=== PATIENT | male | born 1965 | race American Indian/Alaskan Native ===

== ENCOUNTER 2016-06-30 08:35 | Inpatient (IN) | payer SELFPAY ==
[2016-06-30 09:25] LABS: Basophils % (Auto) 0.4 % (0.0-1.8); Eosinophils % (Auto) 0.4 % (0.0-4.3); Hematocrit 44.2 % (35.5-45.6); Hemoglobin 14.1 gm/dl (11.8-15.2); Mean Corpuscular HGB Conc 32 % (32-34); Mean Corpuscular Volume 74 fl (84-94); Platelet Count 167 K/mm3 (140-440); Red Blood Count 5.97 M/mm3 (3.65-5.03); White Blood Count 13.3 K/mm3 (4.5-11.0)
[2016-06-30 09:33] LABS: Mean Corpuscular Hemoglobin 24 pg (28-32)
[2016-06-30 09:34] LABS: INR 1.16 (0.87-1.13)
[2016-06-30 09:40] LABS: Alanine Aminotransferase 22 units/L (7-56); Albumin 4.2 g/dL (3.9-5); Albumin/Globulin Ratio 1.1 %; Alkaline Phosphatase 71 units/L (35-129); Anion Gap 16 mmol/L; BUN/Creatinine Ratio 8.75; Bilirubin,Total 0.7 mg/dL (0.1-1.2); Blood Urea Nitrogen 7 mg/dL (9-20); Calcium 9.8 mg/dL (8.4-10.2); Carbon Dioxide 29 mmol/L (22-30); Chloride 93.3 mmol/L (98-107); Glucose 120 mg/dL (75-100); Lipase 13 units/L (13-60); Potassium 3.7 mmol/L (3.6-5.0); Sodium 135 mmol/L (137-145); Total Protein 8.2 g/dL (6.3-8.2)
[2016-06-30 09:55] LABS: Bilirubin,Direct < 0.2 mg/dL (0-0.2)
--- NOTE | 2016-06-30 10:09 | XRay Report ---
FLAT AND UPRIGHT ABDOMEN: HISTORY: Abdominal pain. FINDINGS: Stool in colon. No bowel distention or wall thickening. No radiopaque calculus or abnormal calcification. No fluid levels. No free intraperitoneal air. IMPRESSION: Essentially negative abdomen.
[2016-06-30] MEDS ORDERED: MORPHINE IV ONE ×2 (11:46→14:03)
--- NOTE | 2016-06-30 11:49 | Emergency Department Report ---
HPI - General Chief Complaint: Abdominal Pain Time Seen by Provider: 06/30/16 09:07 - HPI HPI: 51-year-old Afro-[place]ian male who presents to the emergency department with the complaint of a 4 to five-day history of abdominal discomfort. Patient says that he had some pizza on June 24 and since that time he has been having pain to both the upper and lower abdomen. He denies any fever, nausea, vomiting but does feel like his abdomen is distended and has been having trouble having a satiating bowel movement. He just had one in the emergency department but said it was small and hard and did not provide any relief. He tried laxities on Thursday and Thursday, 2 and 3 days ago, without any relief. He has a history of hypertension for which she says he is compliant with his medications. He has a primary care doctor but cannot remember their name at this time. He denies any recent travel or sick contacts at home. ED Past Medical Hx - Past Medical History Hx Hypertension: Yes (noncompliant) Hx Asthma: Yes (as a child) - Surgical History Additional Surgical History: kidney stone removal - Social History Smoking Status: Current Every Day Smoker Substance Use Type: None, Alcohol - Medications Home Medications: Home Medications Medication Instructions Recorded Confirmed Last Taken Type Folic Acid [Folvite] 1 mg PO QDAY #30 tablet 01/19/14 06/30/16 Unknown Rx Hydrochlorothiazide [Hctz] 12.5 mg PO DAILY #30 capsule 01/19/14 06/30/16 Unknown Rx Metoprolol [Lopressor TAB] 12.5 mg PO BID #60 tablet 01/19/14 06/30/16 Unknown Rx Multivitamin [Multi Vitamin Daily] 1 each PO DAILY #30 tablet 01/19/14 06/30/16 Unknown Rx Pantoprazole [Protonix] 20 mg PO BID #60 tablet. 01/19/14 06/30/16 Unknown Rx Simvastatin 20 mg PO QHS #30 tablet 01/19/14 06/30/16 Unknown Rx Thiamine [Vitamin B-1] 100 mg PO QDAY #30 tablet 01/19/14 06/30/16 Unknown Rx amLODIPine [Norvasc] 10 mg PO DAILY #30 tab 01/19/14 06/30/16 Unknown Rx ED Review of Systems ROS: Stated complaint: ABD PAIN Other details as noted in HPI Comment: All other systems reviewed and negative Constitutional: denies: chills, fever Eyes: denies: eye pain, eye discharge, vision change ENT: denies: ear pain, throat pain Respiratory: denies: cough, shortness of breath, wheezing Cardiovascular: denies: chest pain, palpitations Gastrointestinal: abdominal pain, constipation. denies: nausea, vomiting Genitourinary: denies: urgency, dysuria Musculoskeletal: denies: back pain, joint swelling, arthralgia Skin: denies: rash, lesions Neurological: denies: headache, weakness, paresthesias Physical Exam - Physical Exam Vital Signs: Vital Signs 06/30/16 06/30/16 08:56 11:46 Temperature 98.3 F Pulse Rate 52 L 81 Respiratory 20 16 Rate Blood Pressure 182/122 Blood Pressure 158/107 [Right] O2 Sat by Pulse 100 99 Oximetry Physical Exam: GENERAL: The patient is well-developed well-nourished. HEENT: Normocephalic. Atraumatic. Extraocular motions are intact. Patient has moist mucous membranes. Pupils equal reactive to light bilaterally. NECK: Supple. Trachea is midline. CHEST/LUNGS: Clear to auscultation. There is no respiratory distress noted. HEART/CARDIOVASCULAR: Regular. There is no tachycardia. There is no gallop rub or murmur. ABDOMEN: Abdomen is soft. Patient has tenderness to palpation to the bilateral lower quadrants and the right upper quadrant with some mild guarding but no rebound tenderness. Patient has normal bowel sounds. SKIN: There is no rash. Warm and dry. NEURO: The patient is awake, alert, and oriented. The patient is cooperative. The patient has no focal neurologic deficits. The patient has normal speech. MUSCULOSKELETAL: There is no tenderness or deformity. There is no limitation range of motion. There is no evidence of acute injury. ED Course Vital Signs 06/30/16 06/30/16 08:56 11:46 Temperature 98.3 F Pulse Rate 52 L 81 Respiratory 20 16 Rate Blood Pressure 182/122 Blood Pressure 158/107 [Right] O2 Sat by Pulse 100 99 Oximetry ED Medical Decision Making - Lab Data Result diagrams: 06/30/16 09:12 06/30/16 09:12 - Radiology Data Radiology results: report reviewed, image reviewed interpreted by me: X-ray of the abdomen does not show any acute process. CT of the abdomen and pelvis with IV contrast shows findings at the sigmoid suggestive of diverticulitis though neoplasm cannot be excluded. Dilated appendix without definitive evidence of appendicitis. There is marked narrowing noted of the lumen of the sigmoid with marked wall thickening. There is stranding noted in the adjacent mesentery. No abscess. - Medical Decision Making 51-year-old male presents to the emergency department with a 4 to five-day history of abdominal pain and trouble with bowel movements. His labs are mostly unremarkable but he does have a mild leukocytosis. Due to the patient's level of discomfort and some guarding, a CT of the abdomen and pelvis with IV contrast was done. CT of the abdomen and pelvis shows what appears to be some narrowing of the lumen of the sigmoid colon along with some wall thickening. I spoke with the radiologist who says that the entire area appears masslike but there is no obvious neoplasm but it could be inflammation from diverticulitis versus some underlying neoplasm. Patient was given some IV antibiotics and blood cultures were obtained. He'll be admitted to the hospital for pain control and further evaluation and has been accepted for admission by the hospitalist, Dr. Kessler. - Differential Diagnosis diverticulitis, bowel obstruction, malignancy, colitis Critical Care Time: No Critical care attestation.: If time is entered above; I have spent that time in minutes in the direct care of this critically ill patient, excluding procedure time. ED Disposition Clinical Impression: Intestinal mass, HTN (hypertension), malignant Hypertension Qualifiers: Hypertension type: essential hypertension Qualified Code(s): I10 - Essential ( primary) hypertension Diverticulitis large intestine Qualifiers: Diverticulitis bleeding: without bleeding Diverticulitis complication: without perforation or abscess Qualified Code(s): K57.32 - Diverticulitis of large intestine without perforation or abscess without bleeding Abdominal pain Qualifiers: Abdominal location: unspecified location Qualified Code(s): R10.9 - Unspecified abdominal pain Disposition: OP ADMITTED IP TO THIS HOSP Is pt being admited?: Yes Condition: Stable Instructions: Hypertension (ED) Referrals: PRIMARY CARE, [Primary Care Provider] - 3-5 Days Time of Disposition: 14:11
[2016-06-30 12:08] LABS: Bilirubin,Urine NEG (Negative); Blood,Urine NEG (Negative); Ketones,Urine 20 mg/dL (Negative); Leukocyte Esterase,Urine NEG (Negative); Mucus,Urine 1+ /HPF; Nitrite,Urine NEG (Negative); Sperm,Urine 3+ /HPF (NP)
--- NOTE | 2016-06-30 13:32 | Cat Scan Report ---
CT scan of abdomen and pelvis with IV contrast: History: Abdominal pain. Findings: Normal lung bases. No pleural pericardial effusion. Fatty liver. Normal gallbladder pancreas and spleen. Normal adrenals. 6 mm nonobstructing calculus left kidney. Normal bladder. No free intraperitoneal fluid or air. No evidence of adenopathy. Normal aorta. Dilated appendix measuring 8mm in diameter. There is stool identified within the appendix. No periappendiceal inflammation. There is marked narrowing noted of the lumen of the sigmoid with marked wall thickening. There is stranding noted in the adjacent mesentery. No abscess. A few diverticula are identified. The proximal descending colon, transverse colon and ascending colon does not appear dilated. Normal rectum. Impression: Findings at sigmoid suggestive of diverticulitis though neoplasm cannot be excluded. Dilated appendix without definite evidence of appendicitis. Nonobstructing calculus left kidney. There is a large mass in the left sigmoid with narrowing of the
--- NOTE | 2016-06-30 14:01 | Admit Criteria Form ---
Admission Criteria Documentation: DIVERTICULITIS, ACUTE Clinical Indications for Admission to Inpatient Care (Place 'X' for any and all applicable criteria): Admission is indicated for ANY ONE of the following (1)(2)(3)(4): [ ]I. Peritoneal signs on physical examination (eg, acute abdominal pain, abdominal tenderness and guarding) [ ]II. Hemodynamic instability [ ]III. Persistent gross bleeding per rectum [ ]IV. Need for inpatient surgical intervention [X]V. Significant abnormality on imaging study including ANY ONE of the following: [ ]a) Abscess [ ]b) Obstruction [ ]c) Fistula [ ]d) Ileus [ ]e) Free perforation [ ]. Immunocompromised patient (steroid use, chemotherapy, uremia, AIDS , transplant patient ) with acute symptoms [X]VII Inpatient admission required rather than observation care (also use Diverticulitis, Acute: Observation Care as appropriate) because of ANY ONE of the following: [ ]a) High fever or infection. requiring inpatient admission as indicated by ANY ONE of the following(5): [ ]1) Appropriate outpatient or observation care antimicrobial treatment unavailable, not effective, not feasible [ ]2) Temperature > 103.1 degrees F (39.5 degrees C) (oral) or < 96.8 degrees F (36 degrees C)(rectal) that does not respond to all emergency treatment measures [ ]3) Temperature> 104.9 degrees F (40.5 degrees C)( oral) [ ]4) Documented bacteremia [X]b) Severe pain requiring acute inpatient management [ ]c) Severe electrolyte abnormalities requiring inpatient care [ ]d) Ongoing transfusion for blood loss (> 2 units) [ ]e) IV fluid to replace significant ongoing losses (> 3 L/m2 per day) [ ]f) Parenteral nutrition regimen that must be implemented on inpatient basis [X]g) Other condition, treatment or monitoring requiring inpatient admission Extended stay beyond goal length of stay may be needed for (2) (15) : [ ]a) Unresolved symptoms (19) [ ]b) Complications [ ]c) Diverticular hemorrhage(2) The original [facility] [employer] content created by [facility] [employer] has been revised. The portions of the content which have been revised are identified through the use of italic text or in bold, and [facility] [employer] has neither reviewed nor approved the modified material. All other unmodified content is copyright [facility]. Please see references footnoted in the original [facility] edition 2016 Admission Criteria Met: Yes
[2016-06-30] MEDS ORDERED: ZOSYN/NS 4.5GM/100ML 4.5 GM/100 ML VIAL IV ONE (14:04)
[2016-06-30] MEDS ORDERED: NACL 0.9% 1000 ML 1,000 ML IV SCH (15:00)
[2016-06-30] MEDS ORDERED: ZOFRAN IV PRN (20:50)
--- NOTE | 2016-06-30 21:38 | Event Note ---
Date: 06/30/16 See H/p in reportys Colitis vs Diverticulitis Htn GERD Hld
[2016-06-30] MEDS: DILAUDID IM PRN (22:13)
[2016-06-30] MEDS: D5NS 1,000 ML IV SCH (22:14)
[2016-06-30] MEDS: HEPARIN SUB-Q SCH ×2 (22:14→22:21)
[2016-06-30] MEDS ORDERED: CATAPRES-TTS PATCH TD SCH (23:00)
[2016-06-30] MEDS: ZOSYN/NS 4.5GM/100ML 4.5 GM/100 ML VIAL IV SCH (23:28)
[2016-07-01] MEDS: ZOSYN/NS 4.5GM/100ML 4.5 GM/100 ML VIAL IV SCH ×3 (06:10→22:24)
[2016-07-01] MEDS: HEPARIN SUB-Q SCH ×3 (06:11→22:24)
[2016-07-01] MEDS: DILAUDID IV PRN ×3 (10:08→20:19)
[2016-07-01] MEDS: D5NS 1,000 ML IV SCH (11:27)
--- NOTE | 2016-07-01 17:26 | Gastroenterology Consultation ---
History of Present Illness - Reason for Consult Consult date: 07/01/16 Abdominal pain, abnormal CT scan Requesting physician: JOEL SALOMON - History of Present Illness Asked to see this pleasant 51yo man for evaluation of abdominal pain and abnormal CT scan. He states that he was in his usual state of health until , when he developed abdominal pain. His pain worsened, which prompted him to come to the ED. In the ED, he had a WBC of approximately 13k. CT A/P was performed, which revealed evidence of sigmoid diverticulitis vs mass lesion. Dre states that prior to 06/25, he was feeling well and denies any bowel habit changes, changes in stool caliber, weight loss, change in appetite. No nausea/ vomiting, fevers, chills, night sweats. No CP/SOB. He mentions that over the past week, it has been difficult to have a BM. Past History Past Medical History: hypertension, other (nephrolithiasis) Past Surgical History: Other (kidney stone removal) Social history: , smoking Family history: no significant family history Medications and Allergies Allergies Allergy/AdvReac Type Severity Reaction Status Date / Time SALOME Inhibitors Allergy COUGH Verified 01/19/14 21:30 Home Medications Medication Instructions Recorded Confirmed Last Taken Type Folic Acid [Folvite] 1 mg PO QDAY #30 tablet 01/19/14 06/30/16 Unknown Rx Hydrochlorothiazide [Hctz] 12.5 mg PO DAILY #30 capsule 01/19/14 06/30/16 Unknown Rx Metoprolol [Lopressor TAB] 12.5 mg PO BID #60 tablet 01/19/14 06/30/16 Unknown Rx Multivitamin [Multi Vitamin Daily] 1 each PO DAILY #30 tablet 01/19/14 06/30/16 Unknown Rx Pantoprazole [Protonix] 20 mg PO BID #60 tablet. 01/19/14 06/30/16 Unknown Rx Simvastatin 20 mg PO QHS #30 tablet 01/19/14 06/30/16 Unknown Rx Thiamine [Vitamin B-1] 100 mg PO QDAY #30 tablet 01/19/14 06/30/16 Unknown Rx amLODIPine [Norvasc] 10 mg PO DAILY #30 tab 01/19/14 06/30/16 Unknown Rx Active Meds: Active Medications Clonidine HCl (Catapres-Tts Patch) 0.2 mg TD QWEEK CAROL Last Admin: 06/30/16 23:27 Dose: 0.2 mg Heparin Sodium (Porcine) (Heparin) 5,000 unit SUB-Q Q8HR [facility] Last Admin: 07/01/16 13:42 Dose: Not Given Hydromorphone HCl (Dilaudid) 1 mg IM Q3H PRN PRN Reason: Pain Last Admin: 06/30/16 22:13 Dose: 1 mg Hydromorphone HCl (Dilaudid) 2 mg IV Q3H PRN PRN Reason: Pain , Severe (7-10) Last Admin: 07/01/16 16:37 Dose: 2 mg Sodium Chloride (Nacl 0.9% 1000 Ml) 1,000 mls @ 150 mls/hr IV DIRECT CAROL Last Admin: 06/30/16 17:07 Dose: 150 mls/hr Dextrose/Sodium Chloride (D5ns) 1,000 mls @ 75 mls/hr IV DIRECT CAROL Last Admin: 07/01/16 11:27 Dose: 75 mls/hr Piperacillin Sod/Tazobactam Sod (Zosyn/Ns 4.5gm/100ml) 4.5 gm in 100 mls @ 200 mls/hr IV Q8HR CAROL PRN Reason: Protocol Last Admin: 07/01/16 13:49 Dose: 200 mls/hr Ondansetron HCl (Zofran) 4 mg IV Q3H PRN PRN Reason: Nausea And Vomiting Review of Systems - Review of Systems All systems: negative (abdominal pain, constipation for the past week) Exam - Constitutional Vital Signs: Temp Pulse Resp BP Pulse Ox 97.8 F 52 L 18 173/92 99 07/01/16 15:31 07/01/16 15:31 07/01/16 15:31 07/01/16 15:31 07/01/16 15:31 General appearance: no acute distress, obese - Neck Neck: supple - Respiratory Respiratory: bilateral: CTA - Cardiovascular Rhythm: regular Heart Sounds: Present: S1 & S2 Extremities: No edema - Gastrointestinal General gastrointestinal: Present: soft, tender (in LLQ), non-distended, normal bowel sounds - Integumentary Integumentary: Present: clear - Neurologic Neurological: alert and oriented x3 - Psychiatric Psychiatric: appropriate mood/affect - Labs CBC & Chem 7: 06/30/16 09:12 06/30/16 09:12 - Imaging CT Scan: report reviewed Assessment and Plan 51yo man with 1 week of abdominal pain; CT shows possible diverticulitis vs sigmoid mass. Rec: 1) OK for pt to have ice chips 2) Cont abx for now 3) Will review CT with radiology; if more concerning for mass, will plan for inpatient colonoscopy. If more consistent with diverticulitis, will tx with bowel rest, abx and plan for elective outpatient colonoscopy in 6-8 weeks Thank you for allowing me to participate in the care of your patient.
--- NOTE | 2016-07-01 17:57 | History and Physical Report ---
CHIEF COMPLAINT: Five-day history of severe abdominal pain. HISTORY OF PRESENT ILLNESS: A 51-year-old -[place]oven[place] male with history of hypertension and asthma, noncompliant with medications, comes in for severe periumbilical and epigastric pain for the last 5 days. The patient attributes it to that pizza he ate on 06/24/2016. Since then, the patient has been upper and periumbilical abdominal pain. No nausea and no vomiting. He feels that his abdomen was distended and severe sharp pain. He had one bowel movement in the ER, which was the small in amount. He tried laxatives on Thursday and Thursday 2 or 3 days ago without any relief. He has a history of hypertension for which he is noncompliant with medications. Primary care doctor . No recent bowel, no shortness of breath, no chest pain. Pain is about 8 on a scale of 1-10. Pain is localized epigastric and periumbilical region. PAST MEDICAL HISTORY: Significant for hypertension and asthma. PAST SURGICAL HISTORY: Kidney stones removed. SOCIAL HISTORY: Smokes about a pack a day. Alcohol occasionally. CURRENT MEDICATIONS: Folic acid 1 mg p.o. daily, hydrochlorothiazide 12.5 p.o. daily, metoprolol 12.5 b.i.d., multivitamin tablets 1 tablet daily, Protonix 20 mg p.o. b.i.d., simvastatin 20 mg p.o. at bedtime, thiamine 100 mg p.o. daily, amlodipine 10 mg p.o. daily. REVIEW OF SYSTEMS: CONSTITUTIONAL: No sore throat, no fever, no weight loss, no weight gain. HEENT: No sore throat, no postnasal drip. CARDIOVASCULAR/RESPIRATORY: No shortness of breath, no chest pain, no palpitations. GASTROINTESTINAL: Severe abdominal pain, especially in the wilda-epigastric and periumbilical region. Pain is about 8 on a scale of 1-10. Some guarding present. No rigidity. Bowel sounds are present. GENITOURINARY: No dysuria and no flank pain. MUSCULOSKELETAL: No joint pains. No muscle pains. CENTRAL NERVOUS SYSTEM: No syncope, no seizures. NEUROLOGIC: No focal deficits. SKIN: No rashes. A 14-point review of systems otherwise review of systems other than abdominal pain, which is severe. Review of systems is essentially negative. PHYSICAL EXAMINATION: GENERAL: Middle-aged male, cooperative during examination. VITAL SIGNS: Temperature 98.3, pulse is 52, respirations are 20, and blood pressure is 182/122. HEENT: Unremarkable. Pupils equal and reactive. NECK: Supple, no lymphadenopathy, no thyromegaly. LUNGS: Clear to auscultation and percussion. Good air entry. CARDIOVASCULAR: S1, S2 heard. No gallop, no murmur, no rub. Apical impulse in left fifth intercostal space and midclavicular line. ABDOMEN: Tender in the epigastric and periumbilical region. No guarding. Some guarding present. No rigidity. Bowel sounds are present. EXTREMITIES: Good pedal pulses. No pedal edema. CENTRAL NERVOUS SYSTEM: Alert and oriented x4, nonfocal exam. SKIN: Normal. LABORATORY DATA: Significant for pro-time is 14.7, INR is 1.16. Glucose is 120, calcium is 9.8, total bilirubin 0.7, direct bilirubin less than 0.2, AST is 17, ALT is 22, alkaline phosphatase is 71, total protein is 8.2, albumin is 4.2. Lipase is 13. Urine shows white blood cells 7. IMAGING STUDIES: CT of the abdomen and pelvis shows sigmoid colon thickening suggestive of diverticulitis versus colitis. Dilated appendix without definite evidence of appendicitis. Marked dilating noted in the lumen of the sigmoid with marked wall thickening. Few diverticula identified. Labs were significant for white count of 13,300 H and 14.1 and 44.2, platelet count is 167,000. Sodium is 135, potassium is 3.7, chloride is 93, bicarbonate is 29, BUN and creatinine 7 and 0.8. ASSESSMENT AND PLAN: 1. Acute colitis. The patient was started on IV fluids and IV Flagyl possible malignancy. Malignancy due to hopefully, biopsies were done and during the colonoscopy. GI consult with Dr. Hagan. 2. Hypertension. Continue Lopressor 12.5 twice a day, amlodipine 10 mg once a day. Gastroesophageal reflux disease. Continue Protonix 20 mg twice a day. 3. Hyperlipidemia. Continue simvastatin 100 mg daily. 4. Deep venous thrombosis prophylaxis, Lovenox 40 mg subcutaneous daily. JOB# [id number] VSM/NTS
[2016-07-02] MEDS: D5NS 1,000 ML IV SCH ×2 (02:34→15:46)
[2016-07-02] MEDS: DILAUDID IV PRN ×4 (02:56→21:43)
--- NOTE | 2016-07-02 03:52 | Progress Note ---
Assessment and Plan - Patient Problems (1) Diverticulitis large intestine Current Visit: Yes Status: Acute Qualifiers: Diverticulitis bleeding: without bleeding Diverticulitis complication: without perforation or abscess Qualified Code(s): K57.32 - Diverticulitis of large intestine without perforation or abscess without bleeding Plan to address problem: IV abx, IVF, suppportive care, pain control, bowel rest (2) HTN (hypertension), malignant Current Visit: Yes Status: Acute Plan to address problem: Monitor bp q shift, continue current care. (3) Intestinal mass Current Visit: Yes Status: Acute Plan to address problem: GI consulted, endoscopy as per GI team. (4) DVT prophylaxis Current Visit: Yes Status: Acute History Interval history: Pt resting comfortably in bed, Pt states that his pain is controlled. No reported nursing events. Pt at bedside. Discussed care plan with patient. Pt acknowledges understanding. Hospitalist Physical - Constitutional Vitals: Temp Pulse Resp BP Pulse Ox 98.2 F 52 L 20 142/86 97 07/02/16 00:35 07/02/16 00:35 07/02/16 00:35 07/02/16 00:35 07/01/16 20:00 General appearance: Present: no acute distress, obese - EENT Eyes: Present: PERRL ENT: hearing intact - Neck Neck: Present: supple - Respiratory Respiratory effort: normal Respiratory: bilateral: CTA - Cardiovascular Rhythm: regular Heart Sounds: Present: S1 & S2 - Extremities Extremities: no ischemia Peripheral Pulses: within normal limits - Abdominal General gastrointestinal: non-tender, non-distended, normal bowel sounds, no hepatomegaly, no splenomegaly Localized gastrointestinal: tender: LUQ - Integumentary Integumentary: Present: clear, warm, dry - Psychiatric Psychiatric: appropriate mood/affect, cooperative - Neurologic Neurologic: CNII-XII intact Results - Labs CBC & Chem 7: 06/30/16 09:12 06/30/16 09:12 Labs: Laboratory Last Values WBC 13.3 K/mm3 (4.5-11.0) H 06/30/16 09:12 RBC 5.97 M/mm3 (3.65-5.03) H 06/30/16 09:12 Hgb 14.1 gm/dl (11.8-15.2) 06/30/16 09:12 Hct 44.2 % (35.5-45.6) 06/30/16 09:12 MCV 74 fl (84-94) L 06/30/16 09:12 MCH 24 pg (28-32) L 06/30/16 09:12 MCHC 32 % (32-34) 06/30/16 09:12 RDW 15.0 % (13.2-15.2) 06/30/16 09:12 Plt Count 167 K/mm3 (140-440) 06/30/16 09:12 Lymph % (Auto) 9.4 % (13.4-35.0) L 06/30/16 09:12 [place] % (Auto) 10.8 % (0.0-7.3) H 06/30/16 09:12 Eos % (Auto) 0.4 % (0.0-4.3) 06/30/16 09:12 Baso % (Auto) 0.4 % (0.0-1.8) 06/30/16 09:12 Lymph # 1.2 K/mm3 (1.2-5.4) 06/30/16 09:12 [place] # 1.4 K/mm3 (0.0-0.8) H 06/30/16 09:12 Eos # 0.1 K/mm3 (0.0-0.4) 06/30/16 09:12 Baso # 0.1 K/mm3 (0.0-0.1) 06/30/16 09:12 Seg Neutrophils % 79.0 % (40.0-70.0) H 06/30/16 09:12 Seg Neutrophils # 10.5 K/mm3 (1.8-7.7) H 06/30/16 09:12 PT 14.7 Sec. (12.2-14.9) 06/30/16 09:12 INR 1.16 (0.87-1.13) H 06/30/16 09:12 Sodium 135 mmol/L (137-145) L 06/30/16 09:12 Potassium 3.7 mmol/L (3.6-5.0) 06/30/16 09:12 Chloride 93.3 mmol/L (98-107) L 06/30/16 09:12 Carbon Dioxide 29 mmol/L (22-30) 06/30/16 09:12 Anion Gap 16 mmol/L 06/30/16 09:12 BUN 7 mg/dL (9-20) L 06/30/16 09:12 Creatinine 0.8 mg/dL (0.8-1.5) 06/30/16 09:12 Estimated GFR > 60 ml/min 06/30/16 09:12 BUN/Creatinine Ratio 8.75 % 06/30/16 09:12 Glucose 120 mg/dL (75-100) H 06/30/16 09:12 Calcium 9.8 mg/dL (8.4-10.2) 06/30/16 09:12 Total Bilirubin 0.7 mg/dL (0.1-1.2) 06/30/16 09:12 Direct Bilirubin < 0.2 mg/dL (0-0.2) 06/30/16 09:12 AST 17 units/L (5-40) 06/30/16 09:12 ALT 22 units/L (7-56) 06/30/16 09:12 Alkaline Phosphatase 71 units/L (35-129) 06/30/16 09:12 Total Protein 8.2 g/dL (6.3-8.2) 06/30/16 09:12 Albumin 4.2 g/dL (3.9-5) 06/30/16 09:12 Albumin/Globulin Ratio 1.1 % 06/30/16 09:12 Lipase 13 units/L (13-60) 06/30/16 09:12 Urine Color Yellow (Yellow) 06/30/16 11:54 Urine Turbidity Clear (Clear) 06/30/16 11:54 Urine pH 7.0 (5.0-7.0) 06/30/16 11:54 Ur Specific [place] 1.024 (1.003-1.030) 06/30/16 11:54 Urine Protein 100 mg/dl mg/dL (Negative) 06/30/16 11:54 Urine Glucose (UA) Neg mg/dL (Negative) 06/30/16 11:54 Urine Ketones 20 mg/dL (Negative) 06/30/16 11:54 Urine Blood Neg (Negative) 06/30/16 11:54 Urine Nitrite Neg (Negative) 06/30/16 11:54 Urine Bilirubin Neg (Negative) 06/30/16 11:54 Urine Urobilinogen 4.0 mg/dL (<2.0) 06/30/16 11:54 Ur Leukocyte Esterase Neg (Negative) 06/30/16 11:54 Urine WBC (Auto) 7.0 /HPF (0.0-6.0) H 06/30/16 11:54 Urine RBC (Auto) 20.0 /HPF (0.0-6.0) 06/30/16 11:54 Urine Mucus 1+ /HPF 06/30/16 11:54 Urine Sperm 3+ /HPF (CPA TAX) 06/30/16 11:54
[2016-07-02] MEDS: ZOSYN/NS 4.5GM/100ML 4.5 GM/100 ML VIAL IV SCH ×3 (06:07→21:44)
[2016-07-02] MEDS: HEPARIN SUB-Q SCH ×3 (06:11→22:41)
[2016-07-02] MEDS: DILAUDID IM PRN (08:53)
[2016-07-02] MEDS ORDERED: FLAGYL 500 MG/100 ML 500 MG/100 ML BAG IV ONE (14:00)
--- NOTE | 2016-07-02 16:07 | Gastroenterology Progress Note ---
Assessment and Plan 51yo man with 1 week of abdominal pain; CT shows possible diverticulitis vs sigmoid mass. Rec: 1) Start clear liquids 2) OK to continue Zosyn 3) CT reviewed with radiology; findings c/w sigmoid diverticulitis but segment of involved bowel was so extensive, that underlying mass cannot be excluded 4) Would therefore recommend elective colonoscopy in 6-8 weeks, after diverticulitis heals. I emphasized the importance of compliance with follow-up , which he understands 5) Can give 1 dose of Miralax today Subjective Date of service: 07/02/16 Principal diagnosis: Abdominal pain Interval history: Pt seen/examined. Still w/ some LLQ pain. Tried to have a BM, but could not. No fevers/chills. No nausea/vomiting. Objective - Constitutional Vitals: Temp Pulse Resp BP Pulse Ox 97.9 F 60 16 164/107 96 07/02/16 08:30 07/02/16 08:30 07/02/16 08:30 07/02/16 08:30 07/02/16 08:30 General appearance: no acute distress - Neck Neck: supple - Respiratory Respiratory: bilateral: CTA - Cardiovascular Rhythm: regular Heart Sounds: Present: S1 & S2 - Extremities Extremities: No edema - Gastrointestinal General gastrointestinal: Present: soft, tender (in LLQ), non-distended, normal bowel sounds - Integumentary Integumentary: Present: clear - Neurologic Neurological: alert and oriented x3 - Psychiatric Psychiatric: appropriate mood/affect - Labs CBC & Chem 7: 06/30/16 09:12 06/30/16 09:12 - Imaging CT scan: image reviewed (likely diverticulitis but cannot exclude underlying mass)
--- NOTE | 2016-07-02 17:52 | Progress Note ---
Assessment and Plan - Patient Problems (1) Diverticulitis large intestine Current Visit: Yes Status: Acute Qualifiers: Diverticulitis bleeding: without bleeding Diverticulitis complication: without perforation or abscess Qualified Code(s): K57.32 - Diverticulitis of large intestine without perforation or abscess without bleeding Plan to address problem: IV abx, IVF, suppportive care, pain control, bowel rest (2) HTN (hypertension), malignant Current Visit: Yes Status: Acute Plan to address problem: Monitor bp q shift, continue current care. (3) Intestinal mass Current Visit: Yes Status: Acute Plan to address problem: GI consulted, endoscopy as per GI team. (4) DVT prophylaxis Current Visit: Yes Status: Acute History Interval history: Pt resting comfortably in bed, Pt states that his pain is controlled. No reported nursing events. Discussed care plan with patient. Pt acknowledges understanding. Hospitalist Physical - Constitutional Vitals: Temp Pulse Resp BP Pulse Ox 98.1 F 90 20 158/108 96 07/02/16 16:30 07/02/16 16:30 07/02/16 16:30 07/02/16 16:30 07/02/16 08:30 General appearance: Present: no acute distress, obese - EENT Eyes: Present: PERRL, EOM intact ENT: hearing intact - Neck Neck: Present: supple - Respiratory Respiratory effort: normal Respiratory: bilateral: CTA - Cardiovascular Rhythm: regular Heart Sounds: Present: S1 & S2 - Extremities Extremities: no ischemia Peripheral Pulses: within normal limits - Abdominal General gastrointestinal: soft, non-distended, normal bowel sounds, no hepatomegaly, no splenomegaly Localized gastrointestinal: tender: LLQ - Integumentary Integumentary: Present: clear, warm, dry - Psychiatric Psychiatric: appropriate mood/affect, cooperative - Neurologic Neurologic: CNII-XII intact Results - Labs CBC & Chem 7: 06/30/16 09:12 06/30/16 09:12 Labs: Laboratory Last Values WBC 13.3 K/mm3 (4.5-11.0) H 06/30/16 09:12 RBC 5.97 M/mm3 (3.65-5.03) H 06/30/16 09:12 Hgb 14.1 gm/dl (11.8-15.2) 06/30/16 09:12 Hct 44.2 % (35.5-45.6) 06/30/16 09:12 MCV 74 fl (84-94) L 06/30/16 09:12 MCH 24 pg (28-32) L 06/30/16 09:12 MCHC 32 % (32-34) 06/30/16 09:12 RDW 15.0 % (13.2-15.2) 06/30/16 09:12 Plt Count 167 K/mm3 (140-440) 06/30/16 09:12 Lymph % (Auto) 9.4 % (13.4-35.0) L 06/30/16 09:12 [place] % (Auto) 10.8 % (0.0-7.3) H 06/30/16 09:12 Eos % (Auto) 0.4 % (0.0-4.3) 06/30/16 09:12 Baso % (Auto) 0.4 % (0.0-1.8) 06/30/16 09:12 Lymph # 1.2 K/mm3 (1.2-5.4) 06/30/16 09:12 [place] # 1.4 K/mm3 (0.0-0.8) H 06/30/16 09:12 Eos # 0.1 K/mm3 (0.0-0.4) 06/30/16 09:12 Baso # 0.1 K/mm3 (0.0-0.1) 06/30/16 09:12 Seg Neutrophils % 79.0 % (40.0-70.0) H 06/30/16 09:12 Seg Neutrophils # 10.5 K/mm3 (1.8-7.7) H 06/30/16 09:12 PT 14.7 Sec. (12.2-14.9) 06/30/16 09:12 INR 1.16 (0.87-1.13) H 06/30/16 09:12 Sodium 135 mmol/L (137-145) L 06/30/16 09:12 Potassium 3.7 mmol/L (3.6-5.0) 06/30/16 09:12 Chloride 93.3 mmol/L (98-107) L 06/30/16 09:12 Carbon Dioxide 29 mmol/L (22-30) 06/30/16 09:12 Anion Gap 16 mmol/L 06/30/16 09:12 BUN 7 mg/dL (9-20) L 06/30/16 09:12 Creatinine 0.8 mg/dL (0.8-1.5) 06/30/16 09:12 Estimated GFR > 60 ml/min 06/30/16 09:12 BUN/Creatinine Ratio 8.75 % 06/30/16 09:12 Glucose 120 mg/dL (75-100) H 06/30/16 09:12 Calcium 9.8 mg/dL (8.4-10.2) 06/30/16 09:12 Total Bilirubin 0.7 mg/dL (0.1-1.2) 06/30/16 09:12 Direct Bilirubin < 0.2 mg/dL (0-0.2) 06/30/16 09:12 AST 17 units/L (5-40) 06/30/16 09:12 ALT 22 units/L (7-56) 06/30/16 09:12 Alkaline Phosphatase 71 units/L (35-129) 06/30/16 09:12 Total Protein 8.2 g/dL (6.3-8.2) 06/30/16 09:12 Albumin 4.2 g/dL (3.9-5) 06/30/16 09:12 Albumin/Globulin Ratio 1.1 % 06/30/16 09:12 Lipase 13 units/L (13-60) 06/30/16 09:12 Urine Color Yellow (Yellow) 06/30/16 11:54 Urine Turbidity Clear (Clear) 06/30/16 11:54 Urine pH 7.0 (5.0-7.0) 06/30/16 11:54 Ur Specific [place] 1.024 (1.003-1.030) 06/30/16 11:54 Urine Protein 100 mg/dl mg/dL (Negative) 06/30/16 11:54 Urine Glucose (UA) Neg mg/dL (Negative) 06/30/16 11:54 Urine Ketones 20 mg/dL (Negative) 06/30/16 11:54 Urine Blood Neg (Negative) 06/30/16 11:54 Urine Nitrite Neg (Negative) 06/30/16 11:54 Urine Bilirubin Neg (Negative) 06/30/16 11:54 Urine Urobilinogen 4.0 mg/dL (<2.0) 06/30/16 11:54 Ur Leukocyte Esterase Neg (Negative) 06/30/16 11:54 Urine WBC (Auto) 7.0 /HPF (0.0-6.0) H 06/30/16 11:54 Urine RBC (Auto) 20.0 /HPF (0.0-6.0) 06/30/16 11:54 Urine Mucus 1+ /HPF 06/30/16 11:54 Urine Sperm 3+ /HPF (BOAT CAPTAIN) 06/30/16 11:54
[2016-07-02] MEDS ORDERED: MIRALAX 3350 PO ONE (18:00)
[2016-07-02] MEDS: ZOFRAN IV PRN (21:43)
[2016-07-03] MEDS: DILAUDID IM PRN (03:06)
[2016-07-03] MEDS: ZOFRAN IV PRN (03:06)
[2016-07-03] MEDS: ZOSYN/NS 4.5GM/100ML 4.5 GM/100 ML VIAL IV SCH (05:51)
[2016-07-03] MEDS: HEPARIN SUB-Q SCH (05:53)
[2016-07-03 09:07] VITALS: BP 166/105
--- NOTE | 2016-07-03 09:39 | Gastroenterology Progress Note ---
Assessment and Plan 1. Diverticulitis vs sigmoid mass. Rec: 1) advance to full liquids 2) check CBC today 2) OK to continue Zosyn 3) CT reviewed with radiology; findings c/w sigmoid diverticulitis but segment of involved bowel was so extensive, that underlying mass cannot be excluded 4) Would therefore recommend elective colonoscopy in 6-8 weeks, after diverticulitis heals. I emphasized the importance of compliance with follow-up , which he understands 5) S/P small BM with one dose of Miralax, will give one more dose today. Subjective Date of service: 07/03/16 Principal diagnosis: Abdominal pain Interval history: Patient reports his pain is improved. He is tolerating clears well. Objective - Constitutional Vitals: Temp Pulse Resp BP Pulse Ox 98.5 F 66 22 166/105 97 07/03/16 08:50 07/03/16 08:50 07/03/16 08:50 07/03/16 08:50 07/03/16 08:50 General appearance: no acute distress - EENT Eyes: EOM intact ENT: hearing intact - Neck Neck: supple - Respiratory Respiratory: bilateral: CTA - Cardiovascular Rhythm: regular Heart Sounds: Present: S1 & S2 - Gastrointestinal General gastrointestinal: Present: soft, tender (mild TTP LLQ), normal bowel sounds - Integumentary Integumentary: Present: warm, dry - Labs CBC & Chem 7: 06/30/16 09:12 06/30/16 09:12
[2016-07-03] MEDS: D5NS 1,000 ML IV SCH (09:41)
[2016-07-03] MEDS ORDERED: MIRALAX 3350 PO PRN (09:42)
--- NOTE | 2016-07-03 10:20 | Discharge Summary ---
Providers - Providers Date of Admission: 06/30/16 14:12 Attending physician: YOHANNES JOSEPH 06/30/16 21:44 Consult to Physician [CONS] Routine Consulting Provider: TRISH RIVAS Reason For Exam: colitis Place consult to:: DR. RIVAS Notified:: OFFICE Phone number called:: [phone] Was contact made?: Yes If yes, spoke with:: MATTHEW Time called:: 09:06 Comment:: BETH NOTIFIED Primary care physician: DESK[employer] SUPPORT TECHNICIAN Hospitalization Condition: Stable Disposition: STILL A PATIENT - Discharge Diagnoses (1) Diverticulitis large intestine Status: Acute Qualifiers: Diverticulitis bleeding: without bleeding Diverticulitis complication: without perforation or abscess Qualified Code(s): K57.32 - Diverticulitis of large intestine without perforation or abscess without bleeding (2) HTN (hypertension), malignant Status: Acute (3) Intestinal mass Status: Acute (4) DVT prophylaxis Status: Acute Exam - Constitutional Vitals: Temp Pulse Resp BP Pulse Ox 98.5 F 66 22 166/105 97 07/03/16 08:50 07/03/16 08:50 07/03/16 08:50 07/03/16 08:50 07/03/16 08:50 Plan Follow up with: PRIMARY CAREMD [Primary Care Provider] - 3-5 Days
== END 2016-07-03 12:44 | disposition home or self-care (01) | DRG 392 ==
LOC: ED 08:35 → 3A 14:12
PROVIDERS: ADMIT Internal Medicine; ATTEND Internal Medicine
DX: K57.32 Diverticulitis of large intestine without perforation or abscess without bleeding (principal); J45.909 Unspecified asthma, uncomplicated; K52.9 Noninfective gastroenteritis and colitis, unspecified; I10 Essential (primary) hypertension; E78.5 Hyperlipidemia, unspecified; F17.210 Nicotine dependence, cigarettes, uncomplicated; K21.9 Gastro-esophageal reflux disease without esophagitis; Z87.442 Personal history of urinary calculi; Z88.8 Allergy status to other drugs, medicaments and biological substances
CPT/HCPCS: 36415; 74020; 74177; 80048; 80074; 81001; 83690; 85025; 85610; 87040; 96374; 96375; 96376; J1170; J1644; J2270; J2405; J2543; J7030; J7042; Q9967